=== PATIENT | male | born 1980 | race American Indian/Alaskan Native ===

== ENCOUNTER 2017-06-23 06:59 | Day surgery (SDC) | payer OTHER ==
[2017-06-21 11:15] VITALS: BMI 28.0
[2017-06-23] MEDS ORDERED: Propofol 10 mg/ml Inj (20 ML) ONE (07:04)
[2017-06-23] MEDS ORDERED: Rocuronium 10 mg/ml (5 ml) ONE (07:04)
[2017-06-23] MEDS ORDERED: Lidocaine 4% (Laryng-O-Jet) Kit MM ONE (07:05)
[2017-06-23] MEDS ORDERED: Succinylcholine 200 mg/10 ml Inj IV ONE (07:05)
[2017-06-23] MEDS ORDERED: Phenylephrine 10 mg/ml Inj ONE (07:08)
[2017-06-23] MEDS ORDERED: EPINEPHrine 1 mg/ml (1:1000) Inj ONE (07:21)
[2017-06-23] MEDS ORDERED: MethylPREDNISolone Depo 40 mg/ml Inj ONE (07:21)
[2017-06-23] MEDS ORDERED: Lidocaine 1% w Epi 1:100,000 Inj ONE (07:22)
[2017-06-23] MEDS ORDERED: Lidocaine Hydrochloride 1% 20 ML ONE (07:22)
[2017-06-23] MEDS ORDERED: Bupivacaine 0.5% Inj(30mL) ONE (07:22)
[2017-06-23] MEDS ORDERED: ceFAZolin IV 1 gm in Dextrose 1 GM/50 ML BAG IVPB ONE (07:22)
[2017-06-23] MEDS ORDERED: Bacitracin Ointment 30 GM TUBE ONE (07:22)
[2017-06-23] MEDS ORDERED: Midazolam 2 MG/2 ML VIAL ONE (07:36)
--- NOTE | 2017-06-23 07:36 | CP.SDSHP ---
Same Day Surgery H & P - History Proposed Procedure: Left wrist arthroscopy and excision of ganglion cyst Pre-Op Diagnosis: Left wrist ganglion cyst. tear of the dorsal radioulnar ligament. partial tear dorsal scaphllunate ligament - Previous Medical/Surgical History Comments: no PMH. No medication. [place] [employer] patient report reviewed, no CDS. Patient counseled on the risks of addiction, physical or psychological dependence, and overdose associated with opioid drugs and the danger of taking opioid drugs with alcohol and other central nervous system depressants, and cautioned patient on storage and disposal. Previous Surgical History: knee arthroscopy - Allergies Allergies: Allergies No Known Allergies Allergy (Verified 06/21/17 11:15) - Physical Exam Vital Signs: Vital Signs 06/23/17 07:28 Temperature 98.3 F Pulse Rate 66 Respiratory 20 Rate Blood Pressure 117/77 O2 Sat by Pulse 98 Oximetry Mental Status: Alert & Oriented x3 Neuro: WNL Heart: WNL GI: WNL - {Optional Preform as Required} Ortho: Other (2cm round mobile cyst dorsal wrist, skin intact, no erythema, tender +radial/ulnar pulses) Other Pertinent Findings: MRI report on chart, reviewed - Impression Impression: 37M RHD with left wrist injury at work in 2013 when a box fell onto hand, with continued wrist pain found to have ganglion cyst and dorsal ligament injuries for left wrist arthroscopy and excision of ganglion Pt. Evaluated Today:Candidate for Anesthesia & Procedure: Yes - Date & Time Date: 06/23/17 Time: 07:39 Short Stay Discharge - Short Stay Discharge Admitting Diagnosis/Reason for Visit: M67.432 Disposition: HOME/ ROUTINE Referrals: Ray Woods III, MD [Primary Care Provider] -
[2017-06-23] MEDS ORDERED: Lactated Ringer's 1,000 ML IV ONE (07:45)
[2017-06-23] MEDS ORDERED: Morphine 1 mg/ml preservative-free Inj(Duramorph) ONE (09:19)
--- NOTE | 2017-06-23 09:39 | PCM.SURG1 ---
Surgeon's Initial Post Op Note - Surgeon's Notes Surgeon: Peggy Franchise Manager: MADELINE Molina Type of Anesthesia: General Endo Anesthesia Administered By: Dr solano Pre-Operative Diagnosis: post-traumatic ganglion cyst L Wrist. scapholunate ligament rupture L wrist. synovitis L wrist Operative Findings: ganglion cyst L wrist. scapholunate ligamt rupture. chordomalacia carpal bones. synovitis L wrist Post-Operative Diagnosis: as above Operation Performed: excisional Biopsy post traumatic ganglion cyst. partial capsulectomy L wrist. surg arthroscopy partial synovectomy (wrist). surg arthroscopy debrisemnt L wrist. intraratiucular injection. applx volar splint Specimen/Specimens Removed: synovium/cyst/capsule Estimated Blood Loss: EBL {In ML}: 5 Blood Products Given: N/A Drains Used: No Drains Post-Op Condition: Good Date of Surgery/Procedure: 06/23/17 Time of Surgery/Procedure: 08:45 (time in room/anaaesthesia indcution time-7:45)
[2017-06-23] MEDS ORDERED: HYDROmorphone 0.5 mg/0.5 ml ISec IVP PRN (09:42)
[2017-06-23] MEDS ORDERED: Lactated Ringer's 1,000 ML IV SCH (09:45)
[2017-06-23] MEDS ORDERED: Oxycodone/Acetaminophen 5/325 mg Tab PO PRN (10:46)
[2017-06-23 13:17] VITALS: RESP 18
[2017-06-23] MEDS ORDERED: Oxycodone/Acetaminophen 5/325 mg Tab PO ONE (14:43)
[2017-06-23 15:13] VITALS: O2SAT 97
[2017-06-23 16:19] VITALS: BP 126/76; PULSE 68; TEMP 97.8
--- NOTE | 2017-06-30 16:14 | OP ---
PROCEDURE DATE: 06/23/2017 LOCATION: [facility]. PREOPERATIVE DIAGNOSES: 1. Post-traumatic ganglion cyst, left wrist. 2. Scapholunate ligament rupture in left wrist and synovitis, left wrist. OPERATIVE FINDINGS: Ganglion cyst, left wrist post-traumatic, scapholunate ligament rupture, chondromalacia of carpal bone and synovitis, left wrist. POSTOPERATIVE DIAGNOSES: 1. Post-traumatic ganglion cyst, left wrist. 2. Scapholunate ligament rupture in left wrist and synovitis, left wrist. OPERATION PERFORMED: 1. Excisional biopsy, post-traumatic ganglion cyst. 2. Partial capsulectomy, left wrist. 3. Arthroscopic partial synovectomy of the left wrist. 4. Arthroscopy, debridement of the ligament and chondroplasty, intra-articular injection, and application of volar splint. SURGEON: Ray Woods MD SOCIAL SERVICES TECHNICIAN: Nichelle Gonzalez, certified registered nursing assistant kitchen manager. ESTIMATED BLOOD LOSS: 5 mL. BLOOD PRODUCTS: No blood products given. DRAINS: None. POSTOPERATIVE CONDITION Stable. DATE OF SURGERY 06/23/2017 TIME OF SURGERY: 08:45. ANESTHESIA INDUCTION TIME: 07:45. OPERATIVE PROCEDURE After having obtained informed consent in the above fashion, after thoroughly discussing the pros, cons, risks and benefits of surgical approach, possibility of mechanical failure, infection, thromboembolic disease, later limited fusion was discussed. The patient had sustained a work-related injury and has treated this conservatively. The patient is having significant pain at the mid aspect of the wrist both from the scapholunate ligament rupture and the post-traumatic ganglion cyst. Again the possibility indeed the likelihood of a secondary procedure including but not limited to a triscaphoid limited arthrodesis was discussed. The possibility of mechanical failure, infection, thromboembolic disease, secondary or tertiary surgery was discussed. The patient can no longer withstand the discomfort and wished the surgery to be accomplished. INDICATIONS FOR THE PROCEDURE: After having obtained informed consent in the above fashion, after having identified side, site and procedure and a critical pause/time-out after the satisfactory induction of the anesthetic, the patient identified as Job Emogene in the supine position with all bony prominences well padded the upper extremity. The left upper extremity was prepped and free draped in usual fashion for upper extremity surgery. DESCRIPTION OF THE PROCEDURE: After sterilely prepping and draping the left upper extremity, after having identified side, site and procedure and a critical pause/time-out, the patient identified as Job Juliane in the supine position with all bony prominences well padded. The left upper extremity was prepped and free draped in the usual fashion for upper extremity surgery. The tourniquet had been applied but was not yet inflated. After exsanguinating the limb using a 4-inch Esmarch bandage, tourniquet which had been applied was inflated to 250 mmHg. The operation was performed under 2.5 magnification control. After exsanguinating the limb using 4-inch Esmarch bandage, the tourniquet which had been applied was inflated to 250 mmHg. A transverse incision was accomplished approximately 2 cm in extent superficial to the cyst, the skin incision was carried down through the skin and subcutaneous tissue. Stay sutures were placed. Dissection was carried around the ganglion cyst on the dorsal aspect of the wrist. The extensor tendons were protected using a combination of the stay sutures and the appropriate retractors. The dissection was carried down to the dorsal wrist capsule. The ganglion cyst was excised in its entirety. Great care was taken to control hemostasis and to prevent further recurrence, a portion of the capsule was excised and partial capsulectomy was accomplished using the electrocautery. This having been accomplished on the ulnar aspect, the joint was insufflated with 10 mL of 1% lidocaine without epinephrine, number 11 blade was placed and the 2.7 mm arthroscope was introduced and at this point in time, there was found to be exuberant synovitis and the area of the scapholunate ligament rupture. The scapholunate joint was identified using the arthroscopic shaver, a careful compartmental synovectomy was accomplished. Bleeding points were controlled using the arthroscopic wand. This having been accomplished, again examining for, there was no gross evidence of instability. There was evidence of chondral damage in that particular segment of the carpal bones. Using the arthroscopic shaver, chondroplasty and an abrasion arthroplasty was accomplished using the arthroscopic shaver. Synovectomy was accomplished and the tourniquet was desufflated. Hemostasis was controlled with the Aquamantys and with the electrocautery. The wound was thoroughly irrigated. Closures in layers with interrupted Vicryl and nylon. Hira-Calvillo compression dressing and volar splint was applied. Intra-articular injection had been accomplished of Marcaine, Duramorph and Depo-Medrol. Ray Woods MD [facility] # [id number]
== END 2017-06-23 16:15 | disposition home or self-care (01) ==
LOC: H.OPSURG 06:59
PROVIDERS: ATTEND Orthopaedic Surgery
DX: M67.432 Ganglion, left wrist (principal); M54.9 Dorsalgia, unspecified; M65.88 Other synovitis and tenosynovitis, other site
CPT/HCPCS: 11100; 20605; 25320; 29846; 88304; 88305; J0171; J0330; J0690; J1030; J2001; J2250; J2270; J2370; J2704; J3010; J7030; J7120